=== PATIENT | female | born 1960 | race Caucasian/White ===

== ENCOUNTER 2016-09-21 11:12 | Emergency (ER) | payer OTHER ==
[~2016-09-21] VITALS: Ht 160 cm; Wt 55.8 kg
[2016-09-21] MEDS ORDERED: ONDANSETRON 4 MG TAB.RAPDIS ONE (11:35)
[2016-09-21] MEDS ORDERED: HYDROCODONE/APAP 10/325MG 1 EA TABLET ONE (11:35)
[2016-09-21] MEDS ORDERED: HYDROCODONE/APAP 10/325MG 1 EA TABLET PO ONE (12:00)
[2016-09-21] MEDS ORDERED: ONDANSETRON 4 MG TAB.RAPDIS SL ONE (12:00)
[2016-09-21 13:07] VITALS: BP 132/88
== END 2016-09-21 13:08 | disposition home or self-care (01) ==
LOC: ER 11:15
DX: S52.592A Other fractures of lower end of left radius, initial encounter for closed fracture (principal); E78.00 Pure hypercholesterolemia, unspecified; Z88.0 Allergy status to penicillin; Z88.8 Allergy status to other drugs, medicaments and biological substances; W07.XXXA Fall from chair, initial encounter; Y92.89 Other specified places as the place of occurrence of the external cause; Y93.89 Activity, other specified; Y99.8 Other external cause status
CPT/HCPCS: 73080-TC; 73110; A4606; Q0162; Z7610